=== PATIENT | male | born 1965 | race Caucasian/White ===

== ENCOUNTER 2017-08-21 18:32 | Emergency (ER) | payer MEDICAID ==
--- NOTE | 2017-08-21 19:48 | EDPHY ---
H & P Smoking Status: Current some day smoker Time Seen by Provider: 08/21/17 18:50 HPI/ROS: CHIEF COMPLAINT: Suicidal ideation HISTORY OF PRESENT ILLNESS: Patient is brought in with a friend who says the patient has been getting worse. He was on Suboxone for chronic pain prescribed by a physician in [facility] who then left the state. Since he has been off the Suboxone the patient says he has been getting worsening of his chronic pain and now is suicidal and told his friend that he was going to kill himself by shooting himself with his rifle. Says that he was "turned down "by both parents and both siblings today. Told his friend that he "did not think I was going to make it "and told her this "isn't a life to live. " Patient admits to being very depressed. Has chronic pain which is terrible " all over "but no other medical complaints. REVIEW OF SYSTEMS: Eye: no change in vision ENT: no sore throat Cardiac: no chest pain Pulmonary: no cough or SOB Abdomen: no vomiting, diarrhea, abdominal pain Musculoskeletal: HPI Skin: no laceration Neuro: no headache Constitutional: no fever : no symptoms A comprehensive 10 point review of systems is otherwise negative aside from elements mentioned in the history of present illness. PAST MEDICAL HISTORY: A "neurologic condition "which causes him chronic pain, and depression Social history: Tobacco smoker, sober for almost 32 years General Appearance: Alert and conversant, cooperative. Eyes: No scleral icterus. ENT, Mouth: Normal mucous membranes. Respiratory: Normal respiratory effort, breath sounds equal, lungs are clear to auscultation. Cardiovascular: Regular rate and rhythm. Gastrointestinal: Abdomen is soft and non tender. Neurological: Alert, face symmetric, normal motor and sensory in extremities. Skin: Warm and dry, no rashes. Musculoskeletal: No peripheral edema. Psychiatric: Depressed affect. Intermittently angry. Emergency Department course/MDM: 1952: Placed on a mental health hold by myself for suicidal ideation with a plan to shoot himself with his own rifle. Patient initially had agitation and would not let staff near him. He was given IM Haldol 5 mg and Ativan 2 mg. He was additionally given 10 mg oral Zyprexa. Multiple medications and physical restraints to enable adequate medical screening examination to be performed; patient failed reassurance, 1 on 1, verbal persuading, discussion with friend. At 11:15 p.m. is out of restraints but is refusing to have his blood drawn is given additional 10 mg Zyprexa on oral Ativan again 2 mg. Total 30mg oral zydis total. Plan is to restrain him and intramuscular sedation at this point unless we are able to draw blood for medical screening on him in the next 30 min. Signed out to Dion at 2330. (Omar Johnson) Constitutional: Initial Vital Signs Temperature (C) 36.9 C 08/21/17 18:42 Heart Rate 74 08/21/17 18:42 Respiratory Rate 18 08/21/17 18:42 Blood Pressure 117/80 08/21/17 18:42 O2 Sat (%) 95 08/21/17 18:42 O2 Delivery Mode Room Air O2 (L/minute) 2 Allergies/Adverse Reactions: No Known Allergies Allergy (Unverified 08/21/17 18:41) Home Medications: Medication Instructions Recorded CLONAZEPAM 2 mg DAILY 08/21/17 DIAZEPAM 10 mg DAILY 08/21/17 LYRICA 200 mg BID 08/21/17 Seroquel 200 mg HS 08/22/17 Medical Decision Making ED Course/Re-evaluation: I assumed care of the patient at 0700 pending psychiatric disposition. Updated 10:00 a.m.. The patient was evaluated by Mental Health. They are concerned about the patient's safety and contact with guns at his house. They obtained collateral information from a patient's friend to is concerned about the patient's risk of suicide. They are recommending inpatient psychiatric hospitalization based upon the facts on hand. 3:00 p.m.: Psychiatric disposition is still pending. The patient did require 10 mg of IM Zyprexa for agitation. He will be turned over to Dr. Anaya at shift change pending psychiatric placement. (Se Malcolm) 1500: Patient is signed out to me at change of shift. The patient is stable. Psychiatric Services will place the patient. EMTALA completed. (Yesenia Anaya) Differential Diagnosis: 6:20 a.m.- I received sign-out on this patient from Dr. Johnson at approximately 11:00 p.m. last night. He received medications in order to have blood drawn. Labs were all within normal limits except for urine toxicology which was positive for benzodiazepines and marijuana. The patient was sedate throughout much of my shift and was not able to be evaluated by the mental health team because of this. He will be evaluated later this morning. I anticipate at 7:00 a.m., the case will be signed out to the oncoming provider Dr. Malcolm pending psychiatric evaluation. (Maria Alejandra Ashley) Differential diagnosis considered for depression including functional and major depression, situational depression, medication side effect, drugs and alcohol abuse. (Omar Johnson) - Data Points Laboratory Results: Laboratory Results 08/22/17 00:10 08/22/17 00:10 Medications Given: Haloperidol Lactate (Haldol Injection) 5 mg IM Q6HRS PRN PRN Reason: Agitation Stop: 02/17/18 20:38 Last Admin: 08/21/17 21:01 Dose: 5 mg Discontinued Medications Clonazepam (Klonopin) 1 mg PO EDNOW ONE Stop: 08/22/17 07:56 Last Admin: 08/22/17 08:06 Dose: 1 mg Clonazepam (Klonopin) 1 mg PO EDNOW ONE Stop: 08/22/17 09:12 Last Admin: 08/22/17 09:23 Dose: 1 mg Diazepam (Valium) 5 mg PO EDNOW ONE Stop: 08/22/17 07:56 Last Admin: 08/22/17 08:06 Dose: 5 mg Diazepam (Valium) 5 mg PO EDNOW ONE Stop: 08/22/17 09:12 Last Admin: 08/22/17 09:23 Dose: 5 mg Lorazepam (Ativan Injection) 2 mg IVP EDNOW ONE Stop: 08/21/17 20:39 Last Admin: 08/21/17 21:01 Dose: 2 mg Lorazepam (Ativan) 2 mg PO EDNOW ONE Stop: 08/21/17 23:13 Last Admin: 08/21/17 23:25 Dose: 2 mg Olanzapine (Olanzapine) 10 mg PO ONCE ONE Stop: 08/21/17 21:27 Last Admin: 08/21/17 21:28 Dose: 10 mg Olanzapine (Zyprexa Zydis) 10 mg PO EDNOW ONE Stop: 08/21/17 22:11 Last Admin: 08/21/17 22:19 Dose: 10 mg Olanzapine (Zyprexa Zydis) 10 mg PO EDNOW ONE Stop: 08/21/17 23:13 Last Admin: 08/21/17 23:25 Dose: 10 mg Olanzapine (Olanzapine) 10 mg PO ONCE ONE Stop: 08/22/17 12:59 Last Admin: 08/22/17 13:05 Dose: Not Given Olanzapine (Zyprexa Zydis) 10 mg PO EDNOW ONE Stop: 08/22/17 13:02 Last Admin: 08/22/17 13:06 Dose: 10 mg Pregabalin (Lyrica) 200 mg PO EDNOW ONE Stop: 08/22/17 09:13 Last Admin: 08/22/17 10:08 Dose: 200 mg Departure - Departure Clinical Impression: Severe major depression Condition: Good Instructions: Depression (ED) Referrals: Rachel Masters MD [Primary Care Provider] - As per Instructions
[2017-08-21] MEDS ORDERED: LIDOCAINE/PRILOCAINE 1 EACH CRTUBE TP ONE (19:53)
[2017-08-21] MEDS ORDERED: HALOPERIDOL LACT 5 MG/ML INJ ONE (20:36)
[2017-08-21] MEDS ORDERED: LORazepam 2 MG/ML INJ ONE (20:36)
[2017-08-21] MEDS ORDERED: LORazepam 2 MG/ML INJ IVP ONE (20:38)
[2017-08-21] MEDS ORDERED: HALOPERIDOL LACT 5 MG/ML INJ IM PRN (20:39)
[2017-08-21] MEDS ORDERED: OLANZapine DISINTEGR 10 MG TAB ONE (21:25)
[2017-08-21] MEDS ORDERED: OLANZapine 5 MG TAB PO ONE (21:26)
[2017-08-21] MEDS ORDERED: OLANZapine DISINTEGR 10 MG TAB PO ONE ×2 (22:10→23:12)
[2017-08-21] MEDS ORDERED: LORazepam 1 MG TAB PO ONE (23:12)
[2017-08-22 00:15] LABS: PLATELET COUNT 252 10^3/uL (150-400)
[2017-08-22 00:16] VITALS: RESP 18
[2017-08-22] MEDS ORDERED: clonazePAM 1 MG TAB PO ONE ×2 (07:55→09:11)
[2017-08-22] MEDS ORDERED: DIAZEPAM 5 MG TAB PO ONE ×2 (07:55→09:11)
[2017-08-22] MEDS ORDERED: PREGABALIN 100 MG CAP PO ONE (09:12)
[2017-08-22] MEDS ORDERED: OLANZapine 5 MG TAB PO ONE (12:58)
[2017-08-22] MEDS ORDERED: OLANZapine DISINTEGR 10 MG TAB PO ONE (13:01)
[2017-08-22 17:03] VITALS: PULSE 76; O2SAT 95
[2017-08-22 18:30] VITALS: BP 119/76; TEMP 98.4
== END 2017-08-22 19:26 ==
DX: F32.9 Major depressive disorder, single episode, unspecified (principal); F17.200 Nicotine dependence, unspecified, uncomplicated
CPT/HCPCS: 80305; 96374; G0480; J1630; J2060

== ENCOUNTER 2018-04-15 12:22 | Emergency (ER) | payer MEDICAID ==
[2018-04-15] MEDS ORDERED: LORazepam 2 MG/ML INJ IVP ONE (14:08)
[2018-04-15] MEDS ORDERED: NS 1,000 ML IV ONE (14:09)
--- NOTE | 2018-04-15 14:13 | EDPHY ---
H & P Stated Complaint: ? withdrawal from clonazepam and other psych meds/will be running out of va Time Seen by Provider: 04/15/18 13:59 HPI/ROS: CHIEF COMPLAINT: Severe pain and anxiety HISTORY OF PRESENT ILLNESS: 53-year-old male with depression presents with severe pain and anxiety. He has a history of chronic pain and was previously on Suboxone. Suboxone was discontinued in June 2017. Since then, he has been suffering from ongoing withdrawal symptoms. He has a prescription for Valium, but took an excessive amount of Valium in order to control his symptoms and has now run out of his monthly supply. He is usually seen at [facility] by Dr. Mckeon. REVIEW OF SYSTEMS: complete 10 point ROS reviewed and is negative except for the noted elements in the HPI - Personal History Current Tetanus Diphtheria and Acellular Pertussis (TDAP): No - Medical/Surgical History Hx Asthma: No Hx Chronic Respiratory Disease: No Hx Diabetes: No Hx Cardiac Disease: No Hx Renal Disease: No Hx Cirrhosis: No Hx Alcoholism: No Hx HIV/AIDS: No Hx Splenectomy or Spleen Trauma: No Other PMH: neurologic condition/depression - Social History Smoking Status: Current some day smoker Drug Use: None - Physical Exam Exam: General Appearance: Alert, anxious Eyes: Pupils equal and round, no conjunctival pallor or injection ENT, Mouth: Mucous membranes moist Neck: Normal inspection Respiratory: Lungs are clear to auscultation Cardiovascular: Regular rate and rhythm Gastrointestinal: Abdomen is soft and nontender Neurological: A&O, nonfocal exam Skin: Warm and dry Extremities: Nontender, no pedal edema Psychiatric: Anxious Constitutional: Initial Vital Signs Temperature (C) 37.3 C 04/15/18 12:38 Heart Rate 75 04/15/18 12:38 Respiratory Rate 18 04/15/18 12:38 Blood Pressure 106/67 04/15/18 12:38 O2 Sat (%) 97 04/15/18 12:38 O2 Delivery Mode Room Air Allergies/Adverse Reactions: No Known Allergies Allergy (Unverified 08/21/17 18:41) Home Medications: Medication Instructions Recorded DIAZEPAM 10 mg DAILY 08/21/17 LORazepam [Ativan (RX)] 1 mg PO Q12 PRN #10 tab 04/15/18 Medical Decision Making ED Course/Re-evaluation: This patient presents with severe anxiety, related to chronic pain and possibly secondary to a neurologic disorder. Ativan 1 mg IV given. I reviewed his past medical chart and he was seen in July 2017 for suicidal ideation. During that ED evaluation, he received multiple doses of IV benzodiazepines and Zyprexa. For this reason, I obtained psychiatric labs in case his behavior escalates and he needs psychiatric evaluation. He denies suicidal or homicidal ideation now. 1515: feels somewhat better after IV Ativan. Declines further IV medications. Ativan 1 mg orally given. Requests a prescription for Ativan and to be discharged home. - Data Points Laboratory Results: Laboratory Results 04/15/18 14:00 04/15/18 14:00 04/15/18 04/15/18 14:00 14:00 WBC 13.64 10^3/uL H 10^3/uL (3.80-9.50) RBC 4.55 10^6/uL 10^6/uL (4.40-6.38) Hgb 14.5 g/dL g/dL (13.7-17.5) Hct 41.9 % % (40.0-51.0) MCV 92.1 fL fL (81.5-99.8) MCH 31.9 pg pg (27.9-34.1) MCHC 34.6 g/dL g/dL (32.4-36.7) RDW 12.8 % % (11.5-15.2) Plt Count 264 10^3/uL 10^3/uL (150-400) MPV 9.4 fL fL (8.7-11.7) Neut % (Auto) 71.2 % % (39.3-74.2) Lymph % (Auto) 17.4 % % (15.0-45.0) Avery % (Auto) 9.3 % % (4.5-13.0) Eos % (Auto) 0.9 % % (0.6-7.6) Baso % (Auto) 0.8 % % (0.3-1.7) Nucleat RBC Rel Count 0.0 % % (0.0-0.2) Absolute Neuts (auto) 9.70 10^3/uL H 10^3/uL (1.70-6.50) Absolute Lymphs (auto) 2.38 10^3/uL 10^3/uL (1.00-3.00) Absolute Monos (auto) 1.27 10^3/uL H 10^3/uL (0.30-0.80) Absolute Eos (auto) 0.12 10^3/uL 10^3/uL (0.03-0.40) Absolute Basos (auto) 0.11 10^3/uL H 10^3/uL (0.02-0.10) Absolute Nucleated RBC 0.00 10^3/uL 10^3/uL (0-0.01) Immature Gran % 0.4 % % (0.0-1.1) Immature Gran # 0.06 10^3/uL 10^3/uL (0.00-0.10) Sodium 140 mEq/L mEq/L (135-145) Potassium 4.4 mEq/L mEq/L (3.3-5.0) Chloride 108 mEq/L mEq/L (97-110) Carbon Dioxide 24 mEq/l mEq/l (22-31) Anion Gap 8 mEq/L mEq/L (8-16) BUN 15 mg/dL mg/dL (7-23) Creatinine 0.8 mg/dL mg/dL (0.7-1.3) Estimated GFR > 60 Glucose 81 mg/dL mg/dL (70-100) Calcium 8.6 mg/dL mg/dL (8.5-10.4) Ethyl Alcohol < 10 mg/dL mg/dL (0-10) Medications Given: Discontinued Medications Sodium Chloride (Ns) 1,000 mls @ 0 mls/hr IV ONCE ONE; Wide Open PRN Reason: Protocol Stop: 04/15/18 14:10 Last Admin: 04/15/18 14:15 Dose: 1,000 mls Lorazepam (Ativan Injection) 1 mg IVP EDNOW ONE Stop: 04/15/18 14:09 Last Admin: 04/15/18 14:16 Dose: 1 mg Departure - Departure Disposition: Home, Routine, Self-Care Clinical Impression: Anxiety Chronic pain Qualifiers: Chronic pain type: chronic pain syndrome Qualified Code(s): G89.4 - Chronic pain syndrome Condition: Good Instructions: Chronic Pain (ED), Anxiety (ED) Referrals: La Mckeon MD [Primary Care Provider] - As per Instructions Prescriptions: LORazepam [Ativan (RX)] 1 mg PO Q12 PRN #10 tab PRN Reason: Anxiety
[2018-04-15 14:19] LABS: PLATELET COUNT 264 10^3/uL (150-400)
[2018-04-15] MEDS ORDERED: LORazepam 1 MG TAB PO ONE (15:15)
[2018-04-15 15:22] VITALS: BP 124/81
== END 2018-04-15 15:26 | disposition home or self-care (01) ==
DX: G89.4 Chronic pain syndrome (principal)
CPT/HCPCS: 96374; G0480; J2060